=== PATIENT | female | born 1960 | race Caucasian/White ===

== ENCOUNTER 2018-06-06 14:16 | Emergency (ER) | payer BC ==
[~2018-06-06] VITALS: Ht 157.5 cm; Wt 67.1 kg
[~2018-06-06 14:16] MED LIST: BENADRYL25 MG PO; BENICAR HCT 201 EACH; BENICAR20 MG; CLEOCIN HCL150 MG PO; CRESTOR10 MG PO; EPINEPHRINE0.1 MG/M1; FOSAMAX5 MG PO; GLUCOPHAGE500 MG; GLYBURIDE 5 MG T5 M1; HYDROXYZINE HCL25 M1 PO; NORCO 5-325 TA1 EACH PO; PEPCID AC20 M1 PO; PREDNISONE 10 M10 MG PO; TRAMADOL 50 MG50 MG PO; ZOFRAN4 MG PO
[2018-06-06] MEDS ORDERED: SYNTHROID88 MCG PO (14:33)
[2018-06-06] MEDS ORDERED: LEXAPRO 10 MG T10 M2 PO (14:33)
[2018-06-06] MEDS ORDERED: LISINOPRIL10 MG PO (14:33)
[2018-06-06 15:29] VITALS: BP 116/72
== END 2018-06-06 15:30 | disposition home or self-care (01) ==
LOC: M.ERS 14:16
DX: S61.210A Laceration without foreign body of right index finger without damage to nail, initial encounter (principal); E78.5 Hyperlipidemia, unspecified; E11.9 Type 2 diabetes mellitus without complications; I10 Essential (primary) hypertension; Z90.710 Acquired absence of both cervix and uterus; Z87.442 Personal history of urinary calculi; M81.0 Age-related osteoporosis without current pathological fracture; Z88.1 Allergy status to other antibiotic agents; Z88.2 Allergy status to sulfonamides; W26.8XXA Contact with other sharp object(s), not elsewhere classified, initial encounter; Y93.E9 Activity, other interior property and clothing maintenance; Y92.89 Other specified places as the place of occurrence of the external cause; Y99.8 Other external cause status

== ENCOUNTER 2019-03-22 13:35 | Emergency (ER) | payer BC ==
[~2019-03-22] VITALS: Ht 157.5 cm; Wt 64.4 kg
[~2019-03-22 13:35] MED LIST changes: +LEXAPRO 10 MG T10 M2 PO; +LISINOPRIL10 MG PO; +SYNTHROID88 MCG PO
[2019-03-22] MEDS ORDERED: ZYRTEC10 M5 PO (14:12)
[2019-03-22] MEDS ORDERED: METFORMIN HCL1000 M2 PO (14:12)
[2019-03-22] MEDS ORDERED: FLONASE 0.05%50 MCG NASAL (14:12)
[2019-03-22] MEDS ORDERED: HYDROCODON-ACE1 EAC7 PO (15:13)
[2019-03-22] MEDS ORDERED: IBUPROFEN 800800 M1 PO (15:13)
[2019-03-22 15:40] VITALS: BP 121/65
== END 2019-03-22 15:42 | disposition home or self-care (01) ==
LOC: M.ERS 13:35
DX: S93.601A Unspecified sprain of right foot, initial encounter (principal); S93.401A Sprain of unspecified ligament of right ankle, initial encounter; E78.5 Hyperlipidemia, unspecified; E11.9 Type 2 diabetes mellitus without complications; I10 Essential (primary) hypertension; Z88.0 Allergy status to penicillin; Z88.2 Allergy status to sulfonamides; Z88.5 Allergy status to narcotic agent; Z88.1 Allergy status to other antibiotic agents

== ENCOUNTER 2019-11-25 15:46 | Emergency (ER) | payer BC ==
[~2019-11-25] VITALS: Ht 165.1 cm; Wt 65.8 kg
[~2019-11-25 15:46] MED LIST changes: +FLONASE 0.05%50 MCG NASAL; +HYDROCODON-ACE1 EAC7 PO; +IBUPROFEN 800800 M1 PO; +METFORMIN HCL1000 M2 PO; +ZYRTEC10 M5 PO
[2019-11-25] MEDS ORDERED: NORCO 5-325 TA1 EAC1 PO (17:22)
[2019-11-25 17:38] VITALS: BP 123/68
== END 2019-11-25 17:38 | disposition home or self-care (01) ==
LOC: M.ERS 15:46
DX: S93.491A Sprain of other ligament of right ankle, initial encounter (principal); S00.83XA Contusion of other part of head, initial encounter; I10 Essential (primary) hypertension; E11.9 Type 2 diabetes mellitus without complications; E78.5 Hyperlipidemia, unspecified; E87.5 Hyperkalemia; Z87.442 Personal history of urinary calculi; Z90.710 Acquired absence of both cervix and uterus; Z88.1 Allergy status to other antibiotic agents; Z88.0 Allergy status to penicillin; Z88.2 Allergy status to sulfonamides; Z88.8 Allergy status to other drugs, medicaments and biological substances; W18.39XA Other fall on same level, initial encounter; Y92.89 Other specified places as the place of occurrence of the external cause; Y93.89 Activity, other specified; Y99.8 Other external cause status

== ENCOUNTER 2019-12-24 07:25 | Emergency (ER) | payer BC ==
[~2019-12-24] VITALS: Ht 157.5 cm; Wt 68.0 kg
[~2019-12-24 07:25] MED LIST changes: -LEXAPRO 10 MG T10 M2 PO; +LEXAPRO20 MG PO; +LISINOPRIL-HCT1 EAC2 PO; -LISINOPRIL10 MG PO; +NORCO 5-325 TA1 EAC1 PO
[2019-12-24 07:48] LABS: ABSOLUTE BASOPHILS 0.1 thou/uL (0.0-0.2); ABSOLUTE EOSINOPHILS 0.3 thou/uL (0.0-0.7); ABSOLUTE LYMPHOCYTES 1.9 thou/uL (0.8-5.3); ABSOLUTE MONOCYTES 0.3 thou/uL (0.0-1.2); ABSOLUTE NEUTROPHILS 4.9 thou/uL (1.6-8.1); BASOPHILS 0.7 %; EOSINOPHILS 3.4 %; HEMATOCRIT 40.4 % (37.0-47.0); HEMOGLOBIN 13.8 gm/dL (12.0-15.0); LYMPHOCYTES 25.6 %; MCH 31.1 pg (26.0-34.0); MCHC 34.3 g/dL (28.0-37.0); MCV 90.8 fL (80.0-100.0); MONOCYTES 4.4 %; MPV 8.8 fl. (7.2-11.1); NUCLEATED RBCS 0 /100WBC; PLATELET COUNT* 306 thou/uL (150-400); POLYS 65.9 %; RBC 4.44 mil/uL (4.20-5.00); RDW-CV 14.9 % (10.5-14.5); WBC 7.5 thou/uL (4.0-11.0)
[2019-12-24 07:50] LABS: URINE BILIRUBIN NEGATIVE (Negative); URINE BLOOD NEGATIVE (Negative); URINE CLARITY CLEAR; URINE COLOR YELLOW; URINE GLUCOSE-RANDOM NEGATIVE (Negative); URINE KETONES NEGATIVE (Negative); URINE LEUKOCYTES-REFLEX NEGATIVE (Negative); URINE NITRITE-REFLEX NEGATIVE (Negative); URINE PROTEIN NEGATIVE (Negative); URINE SPECIFIC GRAVITY <= 1.005 (1.005-1.030); URINE UROBILINOGEN 0.2 E.U./dl (0.2-1.0)
[2019-12-24 07:54] LABS: CALCIUM 9.1 mg/dL (8.5-10.1); CREATININE 0.9 mg/dL (0.6-1.3); POTASSIUM 3.7 mmol/L (3.5-5.1)
[2019-12-24 07:55] LABS: INR 0.9; PROTIME 9.7 Seconds (9.20-11.50)
[2019-12-24 08:04] LABS: ALBUMIN 3.9 g/dL (3.4-5.0); TOTAL BILIRUBIN 0.5 mg/dL (<0.1-1.0); TOTAL PROTEIN 7.8 g/dL (6.4-8.2)
[2019-12-24 08:22] VITALS: BP 105/63
--- NOTE | 2019-12-24 11:02 | EKG ---
[place] [address] ELECTROCARDIOGRAM REPORT Name: JARRETT MATUTE Room: [facility]#: [id number] Admission: 12/24/19 Attend Phys: Discharge: 12/24/19 Date of : 60 Date of Service: 12/24/19726 Report #: [id number] THIS REPORT FOR: //name// [facility] ED Test Date: 2019-12-24 Test Time: 07:27:19 Pat Name: JARRETT MATUTE Department: Room: Gender: F [employer]: [place] : 1960 Requested By: Yesenia Grajeda Order Number: [id number] MD: Low Page Measurements Intervals [place] Rate: 88 P: 65 [place]: 171 QRS: 23 QRSD: 88 T: 66 QT: 369 QTc: 447 Interpretive Statements Sinus rhythm Low voltage, precordial leads Baseline wander in lead(s) I,II,aVR,V1,V3 No previous ECG available for comparison Electronically Signed On 12-24-2019 11:01:18 CDT by Low Page [email or web address] <ELECTRONICALLY SIGNED> By: Low Page MD, FACC 12/24/19 1101 6 6 Low Page MD, [facility] /EPI
== END 2019-12-24 08:23 | disposition home or self-care (01) ==
LOC: M.ERS 07:25
PROVIDERS: Emergency Medicine
DX: R07.89 Other chest pain (principal); I10 Essential (primary) hypertension; E11.9 Type 2 diabetes mellitus without complications; E78.5 Hyperlipidemia, unspecified; M81.0 Age-related osteoporosis without current pathological fracture; Z90.710 Acquired absence of both cervix and uterus; Z87.442 Personal history of urinary calculi; Z88.0 Allergy status to penicillin; Z88.1 Allergy status to other antibiotic agents; Z88.2 Allergy status to sulfonamides; Z88.8 Allergy status to other drugs, medicaments and biological substances